=== PATIENT | male | born 1955 | race Caucasian/White ===

== ENCOUNTER 2020-06-14 09:46 | Inpatient (IN) | payer MEDICAID ==
[~2020-06-14] VITALS: Ht 160 cm; Wt 77.1 kg
[~2020-06-14 09:46] MED LIST: ATOR40TA70 MT; COR3 PO; FURO-151 MT; TOPUD PO
[2020-06-14 10:55] LABS: BASOPHILS % 0.5 % (0.0-2.0); EOSINOPHILS % 0.8 % (0.0-5.0); HEMATOCRIT. 43.6 % (42.0-52.0); HEMOGLOBIN. 14.2 g/dL (14.0-18.0); LYMPHOCYTES % 19.9 % (20.0-50.0); MEAN CORPUSCULAR HEMOGLOBIN 28.6 pg (28.0-32.0); MEAN CORPUSCULAR VOLUME 87.6 fL (80.0-94.0); MEAN PLATELET VOLUME 10.3 fl (7.4-10.4); MONOCYTES % 6.4 % (2.0-8.0); NEUTROPHILS % 72.4 % (40.0-76.0); PLATELET 205 x1000/uL (130-400); RED BLOOD CELL COUNT 4.98 mill/uL (4.7-6.1); RED CELL DISTRIBUTION WIDTH 15.4 % (11.6-14.6)
[2020-06-14 10:59] LABS: CHLORIDE 108 mEq/L (98-107)
[2020-06-14 11:06] LABS: INR 1.1; PROTHROMBIN TIME 11.9 sec (9.6-11.0)
[2020-06-14] MEDS ORDERED: FUROSEMIDE 40MG/4ML VIAL IVP NR (11:30)
[2020-06-14] MEDS ORDERED: CLONIDINE 0.1MG TABLET PO NR (11:30)
[2020-06-14] MEDS ORDERED: ACETAMINOPHEN 325MG TABLET PO PRN (15:30)
[2020-06-14] MEDS ORDERED: MAGNESIUM/ALUMINUM HYDROXIDE/SIMETHICONE 30ML UDC PO PRN (15:30)
[2020-06-14] MEDS ORDERED: NA PHOS,M-B/NA PHOS,DI-BA ENEMA 118ML PR PRN (15:30)
[2020-06-14] MEDS ORDERED: ACETAMINOPHEN 650MG SUPP PR PRN ×2 (15:30)
[2020-06-14] MEDS ORDERED: ONDANSETRON HCL 4MG/2ML INJ IV PRN (15:30)
[2020-06-14] MEDS ORDERED: DIPHENHYDRAMINE 50MG/ML VIAL IV PRN (15:30)
[2020-06-14] MEDS: ENOXAPARIN 40MG/0.4ML SYR SUBCUT SCH (16:41)
[2020-06-14] MEDS: CLONIDINE 0.1MG TABLET PO PRN (18:02)
[2020-06-14] MEDS ORDERED: DEXTROSE 50% WATER 50ML SYRINGE IV PRN (21:30)
[2020-06-14] MEDS: AMLODIPINE 10MG TABLET PO SCH (21:55)
[2020-06-14 22:14] LABS: CREATINE KINASE MB FRACTION 2.9 ng/mL (0.5-3.6)
[2020-06-14] MEDS: IPRATROPIUM/ALBUTEROL 0.5-3(2.5)MG/3ML NEB HHN SCH (22:53)
[2020-06-14] MEDS: HYDRALAZINE HCL 25MG TABLET PO SCH (22:55)
[2020-06-15] MEDS: CLONIDINE 0.1MG TABLET PO PRN (00:37)
[2020-06-15 02:40] VITALS: BP 157/108
[2020-06-15] MEDS: BLOOD SUGAR DIAGNOSTIC STRIP TEST SCH ×4 (06:14→21:31)
[2020-06-15 06:38] LABS: BASOPHILS % 0.5 % (0.0-2.0); EOSINOPHILS % 1.5 % (0.0-5.0); HEMOGLOBIN. 13.9 g/dL (14.0-18.0); MEAN CORPUSCULAR HEMOGLOBIN 28.8 pg (28.0-32.0); MEAN CORPUSCULAR VOLUME 86.9 fL (80.0-94.0); MEAN PLATELET VOLUME 10.5 fl (7.4-10.4); MONOCYTES % 7.6 % (2.0-8.0); NEUTROPHILS % 72.4 % (40.0-76.0); PLATELET 198 x1000/uL (130-400); RED BLOOD CELL COUNT 4.84 mill/uL (4.7-6.1); RED CELL DISTRIBUTION WIDTH 15.1 % (11.6-14.6)
[2020-06-15 06:47] LABS: CHLORIDE 104 mEq/L (98-107)
[2020-06-15 06:57] LABS: CREATINE KINASE 67 IU/L (39-308); HDL CHOLESTEROL 39 mg/dL (40-59)
[2020-06-15 06:58] LABS: LDL CHOLESTEROL 90 mg/dL (5-100)
[2020-06-15 07:00] LABS: CREATINE KINASE MB FRACTION 2.8 ng/mL (0.5-3.6)
[2020-06-15] MEDS: INSULIN LISPRO 100 UNITS/ML SUBCUT SCH ×4 (07:50→21:00)
[2020-06-15 08:00] VITALS: BP 146/95
[2020-06-15] MEDS ORDERED: ASPIRIN 81MG EC TABLET PO SCH (09:00)
[2020-06-15 09:13] LABS: CLARITY URINE CLEAR (CLEAR); COLOR URINE DARK YELLOW (YELLOW); KETONES URINE NEGATIVE (NEGATIVE); LEUKOCYTE ESTERASE URINE NEGATIVE (NEGATIVE); NITRITE URINE NEGATIVE (NEGATIVE); OCCULT BLOOD URINE NEGATIVE (NEGATIVE); PROTEIN URINE 3+ (NEGATIVE); SPECIFIC GRAVITY URINE 1.018 (1.005-1.030)
[2020-06-15] MEDS: HYDRALAZINE HCL 25MG TABLET PO SCH ×2 (09:13→21:30)
[2020-06-15] MEDS: FUROSEMIDE 40MG/4ML VIAL IV SCH (09:13)
[2020-06-15] MEDS: AMLODIPINE 10MG TABLET PO SCH (09:14)
[2020-06-15 09:25] LABS: *AMPHETAMINES SCREEN URINE NEGATIVE (NEGATIVE); *BARBITURATES SCREEN URINE NEGATIVE (NEGATIVE); *BENZODIAZEPINES SCREEN URINE NEGATIVE (NEGATIVE)
[2020-06-15 09:26] LABS: *COCAINE SCREEN URINE NEGATIVE (NEGATIVE); CANNABINOID URINE SCREEN NEGATIVE (NEGATIVE); METHADONE URINE SCREEN NEGATIVE (NEGATIVE); OPIATES URINE SCREEN NEGATIVE (NEGATIVE); PHENCYCLIDINE URINE SCREEN NEGATIVE (NEGATIVE)
[2020-06-15] MEDS: IPRATROPIUM/ALBUTEROL 0.5-3(2.5)MG/3ML NEB HHN SCH ×2 (09:38→16:06)
[2020-06-15] MEDS ORDERED: POTASSIUM CHLORIDE 20MEQ TABLET SR PO NR (10:45)
[2020-06-15 12:00] VITALS: BP 132/78
[2020-06-15 16:00] VITALS: BP 145/94
[2020-06-15] MEDS: ENOXAPARIN 40MG/0.4ML SYR SUBCUT SCH (17:18)
[2020-06-15 20:00] VITALS: BP 146/93
[2020-06-16] VITALS: BP 160/105
[2020-06-16] MEDS: IPRATROPIUM/ALBUTEROL 0.5-3(2.5)MG/3ML NEB HHN SCH ×3 (00:45→16:55)
[2020-06-16] MEDS ORDERED: POTASSIUM CHLORIDE 20MEQ TABLET SR PO NR (02:00)
[2020-06-16 04:00] VITALS: BP 154/98
[2020-06-16] MEDS: BLOOD SUGAR DIAGNOSTIC STRIP TEST SCH ×4 (06:24→21:00)
[2020-06-16] MEDS: INSULIN LISPRO 100 UNITS/ML SUBCUT SCH ×4 (07:24→21:00)
[2020-06-16 08:00] VITALS: BP 160/112
[2020-06-16] MEDS: AMLODIPINE 10MG TABLET PO SCH (08:51)
[2020-06-16] MEDS: SPIRONOLACTONE 25MG TABLET PO SCH (08:51)
[2020-06-16] MEDS: HYDRALAZINE HCL 25MG TABLET PO SCH ×2 (08:51→22:14)
[2020-06-16] MEDS: FUROSEMIDE 40MG/4ML VIAL IV SCH (08:52)
[2020-06-16] MEDS: LOSARTAN POTASSIUM 50 MG TABLET PO SCH (08:52)
[2020-06-16 09:12] LABS: BASOPHILS % 0.3 % (0.0-2.0); EOSINOPHILS % 1.4 % (0.0-5.0); HEMATOCRIT. 44.7 % (42.0-52.0); HEMOGLOBIN. 14.5 g/dL (14.0-18.0); LYMPHOCYTES % 18.9 % (20.0-50.0); MEAN CORPUSCULAR HEMOGLOBIN 28.4 pg (28.0-32.0); MEAN CORPUSCULAR VOLUME 87.4 fL (80.0-94.0); MONOCYTES % 7.4 % (2.0-8.0); PLATELET 229 x1000/uL (130-400); RED BLOOD CELL COUNT 5.12 mill/uL (4.7-6.1); RED CELL DISTRIBUTION WIDTH 14.9 % (11.6-14.6)
[2020-06-16 09:22] LABS: CHLORIDE 103 mEq/L (98-107)
[2020-06-16] MEDS: CARVEDILOL 12.5MG TABLET PO SCH ×2 (11:16→22:14)
[2020-06-16 12:04] VITALS: BP 148/88
[2020-06-16 16:00] VITALS: BP 122/54
[2020-06-16] MEDS: ENOXAPARIN 40MG/0.4ML SYR SUBCUT SCH (16:20)
[2020-06-16 20:00] VITALS: BP 149/92
[2020-06-17] VITALS: BP 122/86
[2020-06-17] MEDS: IPRATROPIUM/ALBUTEROL 0.5-3(2.5)MG/3ML NEB HHN SCH (00:16)
[2020-06-17 04:00] VITALS: BP 114/69
[2020-06-17] MEDS: BLOOD SUGAR DIAGNOSTIC STRIP TEST SCH ×2 (07:09→12:04)
[2020-06-17] MEDS: INSULIN LISPRO 100 UNITS/ML SUBCUT SCH ×2 (07:50→12:04)
[2020-06-17 08:00] VITALS: BP 135/98
[2020-06-17] MEDS: HYDRALAZINE HCL 25MG TABLET PO SCH (08:34)
[2020-06-17] MEDS: CARVEDILOL 12.5MG TABLET PO SCH (08:35)
[2020-06-17] MEDS: FUROSEMIDE 40MG/4ML VIAL IV SCH (08:35)
[2020-06-17] MEDS: SPIRONOLACTONE 25MG TABLET PO SCH (08:35)
[2020-06-17] MEDS: LOSARTAN POTASSIUM 50 MG TABLET PO SCH (08:35)
[2020-06-17 12:03] VITALS: BP 120/71
[2020-06-17] MEDS ORDERED: FURO-151 MT (12:25)
[2020-06-17] MEDS ORDERED: SPIR25TA PO (12:25)
[2020-06-17] MEDS ORDERED: COR12 PO (12:25)
[2020-06-17] MEDS ORDERED: LOSA50TA3 PO (12:25)
[2020-06-17 13:35] VITALS: BP 120/71
[2020-06-17 16:30] VITALS: BP 128/76
== END 2020-06-17 17:14 | disposition home or self-care (01) | DRG 194 ==
LOC: ER 09:46 → 6WST 13:05 → ENRESERV 20:12
PROVIDERS: ADMIT Family Medicine; ATTEND Family Medicine
DX: I11.0 Hypertensive heart disease with heart failure (principal); I16.0 Hypertensive urgency; J96.01 Acute respiratory failure with hypoxia; I50.43 Acute on chronic combined systolic (congestive) and diastolic (congestive) heart failure; E66.9 Obesity, unspecified; M54.5 Low back pain; R73.9 Hyperglycemia, unspecified; E80.6 Other disorders of bilirubin metabolism; Z68.33 Body mass index [BMI] 33.0-33.9, adult; Z87.891 Personal history of nicotine dependence; Z88.6 Allergy status to analgesic agent; Z88.8 Allergy status to other drugs, medicaments and biological substances; Z79.84 Long term (current) use of oral hypoglycemic drugs; Z79.899 Other long term (current) drug therapy; Z79.1 Long term (current) use of non-steroidal anti-inflammatories (NSAID); Z91.19 Patient's noncompliance with other medical treatment and regimen
CPT/HCPCS: 36415; 71045; 74018; 80053; 80061; 80305; 81003; 82550; 82553; 82962; 83036; 83735; 83880; 84443; 84484; 85025; 93005; 94640; 99285; J1650; J1815; J1940

== ENCOUNTER 2020-12-23 00:54 | Emergency (ER) | payer MEDICAID ==
[~2020-12-23] VITALS: Ht 160 cm; Wt 78.0 kg
[~2020-12-23 00:54] MED LIST changes: +COR12 PO; +LOSA50TA3 PO; +SPIR25TA PO
[2020-12-23] MEDS ORDERED: HYDROCODONE/ACETAMINOPHEN 5/325MG TABLET PO STA (02:39)
[2020-12-23] MEDS ORDERED: ONDANSETRON 4MG ODT PO STA (02:39)
[2020-12-23 02:53] LABS: BASOPHILS % 0.6 % (0.0-2.0); EOSINOPHILS % 0.8 % (0.0-5.0); HEMATOCRIT. 41.1 % (42.0-52.0); HEMOGLOBIN. 13.5 g/dL (14.0-18.0); LYMPHOCYTES % 22.5 % (20.0-50.0); MEAN CORPUSCULAR HEMOGLOBIN 27.7 pg (28.0-32.0); MEAN CORPUSCULAR VOLUME 84.5 fL (80.0-94.0); MEAN PLATELET VOLUME 9.7 fl (7.4-10.4); NEUTROPHILS % 69.1 % (40.0-76.0); PLATELET 186 x1000/uL (130-400); RED BLOOD CELL COUNT 4.87 mill/uL (4.7-6.1); RED CELL DISTRIBUTION WIDTH 14.9 % (11.6-14.6)
[2020-12-23 02:59] LABS: CHLORIDE 105 mEq/L (98-107)
[2020-12-23 03:17] LABS: CLARITY URINE CLEAR (CLEAR); COLOR URINE YELLOW (YELLOW); KETONES URINE TRACE (NEGATIVE); LEUKOCYTE ESTERASE URINE NEGATIVE (NEGATIVE); NITRITE URINE NEGATIVE (NEGATIVE); OCCULT BLOOD URINE NEGATIVE (NEGATIVE); PH URINE 6.5 (4.5-8.0); PROTEIN URINE 3+ (NEGATIVE); SPECIFIC GRAVITY URINE 1.026 (1.005-1.030)
[2020-12-23] MEDS ORDERED: IBUP-2029 MT (04:35)
[2020-12-23 04:37] VITALS: BP 145/85
== END 2020-12-23 04:41 | disposition home or self-care (01) ==
LOC: ER 00:54
DX: K80.80 Other cholelithiasis without obstruction (principal)
CPT/HCPCS: 36415; 71045; 76705; 80053; 81003; 83605; 83690; 84484; 85025; 93005; 99285; Q0162